=== PATIENT | female | born 1980 | race Two or more races ===

== ENCOUNTER 2017-10-13 23:40 | Emergency (ER) | payer BC ==
[~2017-10-13] VITALS: Ht 157.5 cm; Wt 82.6 kg
[2017-10-13 23:48] VITALS: BP 123/51
== END 2017-10-14 03:22 | disposition home or self-care (01) ==
LOC: ER 23:43
DX: M79.661 Pain in right lower leg (principal); F41.9 Anxiety disorder, unspecified; Z98.890 Other specified postprocedural states
CPT/HCPCS: 93971; 99284; A4606; Z7610